=== PATIENT | female | born 1955 | race Hispanic/Latino ===

== ENCOUNTER 2016-07-23 11:10 | Emergency (ER) | payer BC ==
[2016-07-23 11:10] VITALS: BMI 47.9
[2016-07-23 11:34] VITALS: TEMP 97.6
[2016-07-23] MEDS ORDERED: Albuterol-Ipratrop 3 mg / 0.5 (3 ml) UD IH STA (11:53)
--- NOTE | 2016-07-23 12:11 | ED PDOC ---
Arrival/HPI - General Chief Complaint: Allergic Reaction Time Seen by Provider: 07/23/16 11:50 Historian: Patient - History of Present Illness Narrative History of Present Illness (Text): 07/23/16 11:41 A 61 year old female, whose past medical history includes pulmonary hypertension , DVTs, Factor V Leiden, uterine cancer (in remission) and is on Coumadin, presents to the emergency department complaining of an "allergic reaction" that began 4 nights ago. Patient reports she has has similar symptoms in the past for which she was told she may be allergic to shrimp. Patient notes 4 days ago she did eat clam chowder and symptoms developed after a few hours. Patient states symptoms includes sensation of the throat closing, face/lip edema and a burning sensation along with redness to the arms, neck and face. Patient has been talking Benadryl and using home nebulizer with relief for short periods of time. She notes her last Benadryl was this morning at 0800. Patient denies any shortness of breath, wheezing or other complaints at this time. PMD: Dr. Olvera Time/Duration: Other (4 days) Symptom Onset: Sudden Symptom Course: Unchanged Quality: Burning Activities at Onset: Rest Context: Home Past Medical History - Provider Review Nursing Documentation Reviewed: Yes - Past History Past History: No Previous - Infectious Disease Hx of Infectious Diseases: None - Tetanus Immunization Tetanus Immunization: Unknown - Cardiac Hx Hypertension: Yes Hx Pacemaker: No - Pulmonary Hx Respiratory Disorders: (questionable pulmonary htn) Other/Comment: pulmonary embolism, has jensen filter - Neurological Hx Transient Ischemic Attacks (TIA): Yes - HEENT Hx HEENT Disorder: No - Renal Hx Renal Disorder: No - Endocrine/Metabolic Hx Endocrine Disorders: No - Hematological/Oncological Hx Cancer: Yes (uterus) - Integumentary Other/Comment: 5 puncture wounds left wrist,one puncture wound right hand - Musculoskeletal/Rheumatological Hx Arthritis: Yes (left knee) - Gastrointestinal Hx Gastrointestinal Disorders: No - Genitourinary/Gynecological Hx Genitourinary Disorders: No - Psychiatric Hx Depression: No Hx Emotional Abuse: No Hx Physical Abuse: No Hx Substance Use: No - Surgical History Hx Cardiac Catheterization: Yes Hx Cholecystectomy: Yes Hx Hysterectomy: Yes Hx Orthopedic Surgery: Yes (left knee arthroscopic torn meniscus) - Anesthesia Hx Anesthesia Reactions: No Hx Malignant Hyperthermia: No - Suicidal Assessment Feels Threatened In Home Enviroment: No Family/Social History - Physician Review Nursing Documentation Reviewed: Yes Family/Social History: Other (nc) Smoking Status: Never Smoked Hx Alcohol Use: No Hx Substance Use: No Hx Substance Use Treatment: No Allergies/Home Meds Allergies/Adverse Reactions: Allergies cefuroxime axetil [From Ceftin] Allergy (Verified 07/23/16 11:29) ANAPHYLAXIS codeine Allergy (Verified 07/23/16 11:29) VOMITING tetracycline Allergy (Verified 07/23/16 11:29) RASH levofloxacin [From Levaquin] Adverse Reaction (Verified 07/23/16 11:29) .hyperactive Home Medications: Home Meds Medication Instructions Recorded Confirmed Albuterol Sulfate [Proair Hfa] 0.09 mg IH PRN PRN 01/30/12 12/05/15 Rosuvastatin Calcium [Crestor] 10 mg PO QPM 01/30/12 12/05/15 Warfarin [Coumadin] 7.5 mg PO .6 DAYS PER WEEK 01/30/12 12/05/15 Furosemide [Lasix] 40 mg PO BID 03/30/13 12/05/15 Allopurinol [Zyloprim] 300 mg PO DAILY 12/05/15 12/05/15 Arformoterol [Brovana] 1 inh INH PRN PRN 12/05/15 12/05/15 Budesonide [Pulmicort] 2 inh INH DAILY PRN 12/05/15 12/05/15 Iron/C/B12/Calciu/Stomach Conc 1 tab PO DAILY 12/05/15 12/05/15 [Multigen Caplet] Levocetirizine Dihydrochloride 5 mg PO DAILY 12/05/15 12/05/15 [Xyzal] Levothyroxine [Synthroid] 1 tab PO DAILY 12/05/15 12/05/15 Magnesium Oxide [Mag-Ox] 4 tab PO DAILY 12/05/15 12/05/15 Metolazone [Metolazone] 2.5 mg PO DAILY 12/05/15 12/05/15 Nebivolol [Bystolic] 5 mg PO BID 12/05/15 12/05/15 Potassium Chloride [K-Dur 20 mEq 6 tab PO DAILY 12/05/15 12/05/15 ER Tab] Sertraline [Zoloft] 12.5 mg PO DAILY 12/05/15 12/05/15 Spironolactone [Aldactone] 25 mg PO TID 12/05/15 12/05/15 Warfarin [Coumadin] 5 mg PO .ONE DAY PER WEEK 12/05/15 12/05/15 hydrALAZINE [Apresoline] 25 mg PO TID 12/05/15 12/05/15 Review of Systems - Physician Review All systems were reviewed & negative as marked: Yes - Review of Systems Constitutional: Other (face and lip swelling) ENT: Other (sensation of the throat closing) Respiratory: absent: SOB, Wheezing Skin: Other (burning sensation to the bilateral arms, neck and face) Physical Exam Vital Signs Reviewed: Yes Vital Signs Temp Pulse Resp BP Pulse Ox 07/23/16 14:15 67 18 133/88 98 07/23/16 12:15 79 18 115/61 95 07/23/16 11:34 97.6 F 84 20 113/58 L 94 L Temperature: Afebrile Blood Pressure: Hypotensive Pulse: Regular Respiratory Rate: Normal Appearance: Positive for: Well-Appearing, Non-Toxic, Comfortable Pain Distress: None Mental Status: Positive for: Alert and Oriented X 3 - Systems Exam Head: Present: Atraumatic, Normocephalic Pupils: Present: PERRL Extroacular Muscles: Present: EOMI Conjunctiva: Present: Normal Mouth: Present: Moist Mucous Membranes Pharnyx: No: ERYTHEMA, EXUDATE, TONSILS ENLARGED, Peritonsilar Swelling, Uvular Deviation Neck: Present: Normal Range of Motion Respiratory/Chest: Present: Clear to Auscultation, Good Air Exchange. No: Respiratory Distress, Accessory Muscle Use Cardiovascular: Present: Regular Rate and Rhythm, Normal S1, S2. No: Murmurs Abdomen: Present: Normal Bowel Sounds. No: Tenderness, Distention, Peritoneal Signs Back: Present: Normal Inspection Upper Extremity: Present: Normal Inspection. No: Cyanosis, Edema Lower Extremity: Present: Normal Inspection. No: Edema Neurological: Present: GCS=15, Speech Normal Skin: Present: Warm, Dry, Normal Color. No: Rashes Psychiatric: Present: Alert, Oriented x 3, Normal Insight, Normal Concentration Medical Decision Making ED Course and Treatment: EKG: Ordered, reviewed, and independently interpreted the EKG. Rate : 75 BPM Rhythm : NSR Interpretation : Low voltage QRS but no acute ischemia Comparison : Similar to previous EKG on 12/05/15 for comparison. 07/23/16 13:14 Chest X-ray: Creator : Bhavik Tavera MD COMPARISON: 12/05/2015 FINDINGS: LUNGS: No active pulmonary disease. PLEURA: No significant pleural effusion identified. No pneumothorax apparent. CARDIOVASCULAR: Normal. OSSEOUS STRUCTURES: No significant abnormalities. VISUALIZED UPPER ABDOMEN: Normal. OTHER FINDINGS: None. IMPRESSION: No active disease. 07/23/16 13:15 Neck (Soft Tissue) X-ray: Creator : Bhavik Tavera MD COMPARISON: None. FINDINGS: SOFT TISSUES: Unremarkable. No radiopaque foreign body seen. CERVICAL SPINE: Grossly unremarkable. OTHER FINDINGS: None. IMPRESSION: Unremarkable radiographs of the soft tissues of the neck. 07/23/16 14:01 pt resting comfortably. states her sx are much improved. she is comfortable w dc. has epi pen at home. return if worse. - Lab Interpretations Lab Results: 07/23/16 12:05 07/23/16 12:05 Lab Results 07/23/16 12:05: PT 29.3 H, INR 2.71 H 07/23/16 12:05: Sodium 139, Potassium 3.8, Chloride 100, Carbon Dioxide 29, Anion Gap 14, BUN 24 H, Creatinine 1.3, Est GFR ( Amer) 50, Est GFR (Non- Af Amer) 41, Random Glucose 105, Calcium 9.8, Total Bilirubin 0.7, AST 40 H, ALT 37, Alkaline Phosphatase 52, Troponin I < 0.01, NT-Pro-B Natriuret Pep 60.0 , Total Protein 7.9, Albumin 4.3, Globulin 3.6, Albumin/Globulin Ratio 1.2 07/23/16 12:05: WBC 7.9, RBC 4.19, Hgb 14.1, Hct 41.2, MCV 98.3, MCH 33.7, MCHC 34.2, RDW 15.3 H, Plt Count 323, MPV 10.3, Gran % 68.4 H, Lymph % (Auto) 20.1 L , [place] % (Auto) 9.3 H, Eos % (Auto) 1.9, Baso % (Auto) 0.3, Gran # 5.43, Lymph # 1.6, [place] # 0.7 H, Eos # 0.2, Baso # 0.02 I have reviewed the lab results: Yes - RAD Interpretation Radiology Orders: 07/23/16 11:52 CHEST TWO VIEWS (PA/LAT) [RAD] Stat NECK SOFT TISSUE [RAD] Stat - Medication Orders Current Medication Orders: Discontinued Medications Albuterol/Ipratropium (Duoneb 3 Mg/0.5 Mg (3 Ml) Ud) 3 ml IH ONCE STA Stop: 07/23/16 11:54 Last Admin: 07/23/16 12:32 Dose: 3 ml Methylprednisolone (Solu-Medrol) 125 mg IVP STAT STA Stop: 07/23/16 11:54 Last Admin: 07/23/16 12:32 Dose: 125 mg - Scribe Statement The provider has reviewed the documentation as recorded by the Kelsey Escobar Provider Scribe Attestation: All medical record entries made by the Scribe were at my direction and personally dictated by me. I have reviewed the chart and agree that the record accurately reflects my personal performance of the history, physical exam, medical decision making, and the department course for this patient. I have also personally directed, reviewed, and agree with the discharge instructions and disposition. Disposition/Present on Arrival - Present on Arrival Any Indicators Present on Arrival: Yes History of DVT/PE: Yes History of Uncontrolled Diabetes: No Urinary Catheter: No History of Decub. Ulcer: No History Surgical Site Infection Following: None - Disposition Have Diagnosis and Disposition been Completed?: Yes Diagnosis: Allergic reaction Disposition: HOME/ ROUTINE Disposition Time: 14:01 Condition: IMPROVED Additional Instructions: Please follow up with your doctor. Keep epi pen with you at all times. Return to the ER for any worsening symptoms or for any other concerns. Prescriptions: Prednisone 50 mg PO DAILY #4 tablet Referrals: Ifeanyi Olvera MD [Primary Care Provider] - Follow up with primary Forms: WORK NOTE
[2016-07-23 12:16] VITALS: RESP 18
[2016-07-23 12:44] LABS: ADD MANUAL DIFF? NO
[2016-07-23 12:54] LABS: BASO # 0.02 K/mm3 (0.0-2.0); BASO % 0.3 % (0.0-3.0); EOS # 0.2 (0.0-0.7); EOS % 1.9 % (1.5-5.0); GRAN # 5.43 (1.4-6.5); GRAN % 68.4 % (50.0-68.0); HEMATOCRIT 41.2 % (36.0-48.0); LYMPH # 1.6 (1.2-3.4); LYMPH % 20.1 % (22.0-35.0); MEAN CELL VOLUME 98.3 fL (80.0-105.0); MEAN CORPUSCULAR HEMOGLOBIN 33.7 pg (25.0-35.0); MEAN CORPUSCULAR HGB CONC 34.2 g/dl (31.0-37.0); MEAN PLATELET VOLUME 10.3 fl (7.0-11.0); MONO # 0.7 (0.1-0.6); MONO % 9.3 % (1.0-6.0); PLATELET COUNT 323 10^3/uL (120.0-450.0); RED CELL DISTRIBUTION WIDTH 15.3 % (11.5-14.5); WHITE BLOOD COUNT 7.9 10^3/ul (4.5-11.0)
[2016-07-23 12:58] LABS: ALB/GLOB RATIO 1.2 (1.1-1.8); ALKALINE PHOSPHATASE 52 U/L (38-133); ALT/SGPT 37 U/L (7-56); AST/SGOT 40 U/L (15-39); BILIRUBIN,TOTAL 0.7 mg/dL (0.2-1.3); BLOOD UREA NITROGEN 24 mg/dL (7-21); CALCIUM 9.8 mg/dL (8.4-10.5); CARBON DIOXIDE 29 mmol/L (21-33); CHLORIDE 100 mmol/L (98-107); GFR AFRICAN-AMERICAN 50; GLUCOSE,RANDOM 105 mg/dL (70-110); POTASSIUM 3.8 mmol/L (3.6-5.0); SODIUM 139 mmol/L (132-148); TOTAL PROTEIN 7.9 g/dL (5.8-8.3)
[2016-07-23 12:59] LABS: INR 2.71 (0.93-1.08)
[2016-07-23 13:13] LABS: TROPONIN I < 0.01 ng/mL
--- NOTE | 2016-07-23 13:15 | RAD ---
PROCEDURE: Radiographs of the neck (soft tissue). HISTORY: "throat closing" COMPARISON: None. TECHNIQUE: Frontal and Lateral Radiographs of the neck, optimized for soft tissue visualization. FINDINGS: SOFT TISSUES: Unremarkable. No radiopaque foreign body seen. CERVICAL SPINE: Grossly unremarkable. OTHER FINDINGS: None. IMPRESSION: Unremarkable radiographs of the soft tissues of the neck.
--- NOTE | 2016-07-23 13:15 | RAD ---
HISTORY: "throat closing" COMPARISON: 12/05/2015 TECHNIQUE: Chest PA and lateral FINDINGS: LUNGS: No active pulmonary disease. PLEURA: No significant pleural effusion identified. No pneumothorax apparent. CARDIOVASCULAR: Normal. OSSEOUS STRUCTURES: No significant abnormalities. VISUALIZED UPPER ABDOMEN: Normal. OTHER FINDINGS: None. IMPRESSION: No active disease.
[2016-07-23 14:16] VITALS: BP 133/88; PULSE 67; O2SAT 98
--- NOTE | 2016-07-23 14:47 | CARD ---
APPROVED REPORT EKG Measurement Heart [id number] <Conclusion> Normal sinus rhythm Low voltage QRS Borderline ECG
== END 2016-07-23 14:15 | disposition home or self-care (01) ==
LOC: ED 11:10
DX: T78.40XA Allergy, unspecified, initial encounter (principal); X58.XXXA Exposure to other specified factors, initial encounter
CPT/HCPCS: 70360; 71020; 80053; 83880; 84484; 85025; 85610; 93005; 96374; 99284; J2930

== ENCOUNTER 2017-12-23 11:49 | Day surgery (SDC) | payer BC ==
[2017-12-23 12:37] VITALS: TEMP 97.8
[2017-12-23] MEDS ORDERED: Propofol 10 mg/ml Inj (20 ML) ONE ×3 (14:10→14:44)
[2017-12-23] MEDS ORDERED: Simethicone 40 mg/0.6 ml Liquid (30 ml) ONE (14:25)
[2017-12-23] MEDS ORDERED: Lactated Ringer's 1,000 ML IV SCH (15:30)
[2017-12-23 16:42] VITALS: BP 104/64; PULSE 59; RESP 16; O2SAT 98
== END 2017-12-23 16:28 | disposition home or self-care (01) ==
LOC: ENDO 11:49
PROVIDERS: ATTEND Internal Medicine Gastroenterology
DX: K22.70 Barrett's esophagus without dysplasia (principal); R19.7 Diarrhea, unspecified; K64.8 Other hemorrhoids; K29.50 Unspecified chronic gastritis without bleeding; I27.20 Pulmonary hypertension, unspecified; J45.909 Unspecified asthma, uncomplicated; I11.0 Hypertensive heart disease with heart failure; I50.9 Heart failure, unspecified; E03.9 Hypothyroidism, unspecified; R10.812 Left upper quadrant abdominal tenderness; Z85.42 Personal history of malignant neoplasm of other parts of uterus; Z90.710 Acquired absence of both cervix and uterus; Z86.711 Personal history of pulmonary embolism; Z90.49 Acquired absence of other specified parts of digestive tract; Z86.73 Personal history of transient ischemic attack (TIA), and cerebral infarction without residual deficits; K63.89 Other specified diseases of intestine
CPT/HCPCS: 43239; 45380; 88305; 88312; 88342; J2001; J2704; J7120